=== PATIENT | female | born 1950 | race Caucasian/White ===

== ENCOUNTER 2017-03-05 05:27 | Inpatient (IN) | payer OTHER, MEDICARE ==
[2017-02-19 09:07] LABS: URINE BILIRUBIN NEGATIVE (Negative); URINE BLOOD TRACE (Negative); URINE COLOR YELLOW; URINE GLUCOSE-RANDOM* NEGATIVE (Negative); URINE KETONES TRACE (Negative); URINE LEUKOCYTES-REFLEX NEGATIVE (Negative); URINE PROTEIN (DIPSTICK) TRACE (Negative); URINE SPECIFIC GRAVITY >= 1.030 (1.003-1.035); URINE UROBILINOGEN 0.2 E.U./dl (0.2-1.0)
[2017-02-19 09:08] LABS: HEMATOCRIT 41.8 % (37.0-47.0); HEMOGLOBIN 14.2 gm/dL (12.0-15.0); MCH 31.2 pg (26.0-34.0); MCHC 33.9 g/dL (28.0-37.0); MCV 92.2 fL (80.0-100.0); RBC 4.53 mil/uL (4.20-5.00); RDW 12.7 % (10.5-14.5); WBC 3.9 thou/uL (4.0-11.0)
[2017-02-19 09:36] LABS: PROTIME 10.6 Seconds (9.3-11.4)
[2017-02-19 09:51] LABS: ALBUMIN 3.8 g/dL (3.4-5.0); CALCIUM 9.4 mg/dL (8.5-10.1); CREATININE 0.9 mg/dL (0.6-1.0); POTASSIUM 4.5 mmol/L (3.5-5.1)
[2017-03-05] VITALS (7 sets, daily range): BP systolic 98–165; BP diastolic 57–78
[~2017-03-05] VITALS: Ht 162.6 cm; Wt 84.4 kg
--- NOTE | ~2017-03-05 | HC ---
[facility] [place] [address] CONSULTATION Name: CHAVO SERRANO Room #: 411-P [facility] IN M.R.#: [id number] Admission: 03/05/17 Attend Phys: Aneesh Richardson MD Discharge: 03/08/17 Date of : 52 Report #: [id number] THIS REPORT FOR: //name// CC: Fan Richardson DATE OF SERVICE: 03/07/2017 HISTORY OF PRESENT ILLNESS: This is a 66-year-old female patient who was evaluated by me for tremor and what appeared to be somewhat of unusual symptoms in the eye. She gives a history that she had episodes where she thought some fog was racing into her eyes. It was present in both eyes. She had some trouble with double vision that is better. Her eye symptoms are not fully resolved, but they are better. It is not associated with any significant headache. She has no prior history of migraine. She has no history of anxiety. Symptoms were severe, although they are better now. REVIEW OF SYSTEMS: Indicate that she has been admitted for knee replacement as I understand. She had the surgery done on Sunday. Otherwise, she is a pretty healthy. I carried out the 14-point review of system and she indicates she takes some trazodone. She was not taking any gabapentin. She does take aspirin and statin. She tells me rest of her 14-point review of system was mostly unremarkable. PAST MEDICAL HISTORY: Negative for any migraine. FAMILY HISTORY: Negative for early age stroke. SOCIAL HISTORY: She tells me she is not an anxious person and she drinks very little and does not smoke. PHYSICAL EXAMINATION: NEUROLOGIC: Indicates that she is alert. She is responsive. Her speech, concentration, fund of knowledge and memory is at her baseline. Cranial nerve examination 2-12 mostly clinically looks unremarkable, but when I asked her to read, she says her vision is still not back to normal. It is not double, but she cannot explain what it is. for her surgery, she has symmetrical strength, sensation, reflexes and tone in all 4 extremities. There is no meningeal sign. There is no carotid bruit. She is a very well-developed individual who does not have any dysmorphic features of eyes, ears and face. Her hearing and vision looks adequate. CARDIAC AND RESPIRATORY: Unremarkable. EXTREMITIES: Pulses are palpable and she has no edema, cyanosis or jaundice. VITAL SIGNS: Her blood pressure is somewhat running low at 88/49, temperature is 97.9, respiration is 16. [address] [address] CONSULTATION Name: CHAVO SERRANO Room #: [facility] IN [facility].#: [id number] Admission: 03/05/17 Attend Phys: Aneesh Richardson MD Discharge: 03/08/17 Date of : 52 Report #: [id number] LABORATORY DATA: She is slightly anemic with hemoglobin of 10.3. She did have a CT scan of the head, which was reviewed and was unremarkable. IMPRESSION: These are pretty unusual symptoms. It is possible they are all ophthalmic migraine, but she does have some tremor with it. I suggested some other workup. The first thing we need is a good Ophthalmology examination. Nurses are not sure whether any pre owned sales manager comes here anymore, but they are trying to get one. I discussed that with Dr. Shaw and he is trying to arrange some Ophthalmology consult and she needs a good ophthalmic exam. I will suggest a sed rate. I will get a carotid Doppler and EEG done. We will see if she is settled down. Otherwise, we can consider MRI, but we may have to talk to the Orthopedic and some of them will not allow an MRI for a few weeks after the surgery. Thank you very much for this referral and if you have any question, please feel free to contact me and I discussed all of it with the patient in detail. <ELECTRONICALLY SIGNED> By: Cruz Ibanez MD 03/12/17 1107 [id number] Cruz Ibanez MD /nt
--- NOTE | ~2017-03-05 | EKG ---
[address] [address] ELECTROCARDIOGRAM REPORT Name: CHAVO SERRANO Room #: PRE IN M.R.#: [id number] Admission: Attend Phys: Aneesh Richardson MD Discharge: Date of : 52 Report #: [id number] THIS REPORT FOR: //name// [facility] Test Date: 2017-02-19 Test Time: 08:08:51 Pat Name: CHAVO SERRANO Department: Room: Gender: F Transit Mix Operator: Anna CALDERON : 1950 Requested By: Aneesh Richardson Order Number: [id number] MD: Measurements Intervals [place] Rate: 63 P: 30 LA: 139 QRS: 29 QRSD: 77 T: 53 QT: 396 QTc: 406 Interpretive Statements Sinus rhythm No previous ECG available for comparison [email or web address] By: 0808 0808 Richa Chaudhry MD /EPI
--- NOTE | ~2017-03-05 | EEG ---
[facility] [email or web address] [address] ELECTROENCEPHALOGRAM Name: CHAVO SERRANO Room #: 411-P [facility] IN M.R.#: [id number] Admission: 03/05/17 Attend Phys: Aneesh Richardson MD Discharge: 03/08/17 Date of : 52 Report #: [id number] THIS REPORT FOR: //name// CC: Fan Richardson DATE OF SERVICE: 03/08/2017 This patient had episodes which were somewhat of an unstructured episode. I called the patient and talked to the this morning and she has not had any further episode. EEG was done to further evaluate that. Background activity in this patient's EEG is about 11 Hz and 40 microvolt. It is a pretty well formed background activity. The patient goes to sleep that is associated with bilaterally symmetrical sleep spindle and vertex sharp waves. Bilateral slowing is present. On occasion, it looks like there may be some sharper activity, but it is difficult to be certain. IMPRESSION: This is a borderline EEG, which is intermixed with slowing. That may be the effect of medication. This patient never had any symptoms before, but I talked to them. I think she should have repeat EEG early next week. If she has any further symptoms, she should go to Emergency Room. She should take seizure precautions and should not drive for the time being. We will give her more instruction after we get the repeat EEG next week. Thank you very much for this referral. <ELECTRONICALLY SIGNED> By: Cruz Ibanez MD 03/12/17 1108 [id number] Cruz Ibanez MD /nt
--- NOTE | ~2017-03-05 | O ---
[facility] [place] [address] OPERATIVE REPORT Name: CHAVO SERRANO Room #: 150-17 ADM IN M.R.#: [id number] Admission: 03/05/17 Attend Phys: Aneesh Richardson MD Discharge: Date of : 52 Report #: [id number] THIS REPORT FOR: //name// CC: Fan Richardson DATE OF SERVICE: 03/05/2017 PREOPERATIVE DIAGNOSIS: Right knee osteoarthritis. POSTOPERATIVE DIAGNOSIS: Right knee osteoarthritis. PROCEDURE: Right total knee arthroplasty. SURGEON: Aneesh Richardson MD. SEWING MACHINE ASSEMBLER: Tasia Gan PA-C. INDICATION FOR SEWING MACHINE ASSEMBLER: Throughout the case extensive retraction and manipulation of the knee was required. This was afforded to me by my daycare assistant. ANESTHESIA: General with an adductor canal block. IMPLANTS: [employer] size 4 Legion cobalt chrome posterior stabilized femur, a size 2 tibia, size 9 polyethylene, and size 32 patella. TOURNIQUET TIME: 55 minutes. ESTIMATED BLOOD LOSS: 50 mL. COMPLICATIONS: None. SPECIMENS: None. CONDITION UPON LEAVING OPERATING ROOM: Stable. INDICATION FOR PROCEDURE: The patient is a 66-year-old female with right knee osteoarthritis. She had failed conservative treatment for this and after discussion with her she elected for right total knee arthroplasty. DESCRIPTION OF PROCEDURE: Risks, benefits, alternatives, complications were discussed in detail with the patient including but not limited to risk of anesthesia, risk of damage to nerves, arteries, blood vessels; risk for infection, bleeding, risk for continued knee pain and need for reoperation. Informed consent was obtained from the patient. The right knee was appropriately marked in the preoperative holding area. Adductor canal block was [facility] [address] [place] [address] OPERATIVE REPORT Name: CHAVO SERRANO Room #: 150-17 ADM IN M.R.#: [id number] Admission: 03/05/17 Attend Phys: Aneesh Richardson MD Discharge: Date of : 52 Report #: [id number] placed by Anesthesia. IV clindamycin was given for preoperative antibiotics. She was brought to the operating room and placed in the supine position on the operating room table. LMA anesthesia was induced without complication. Tourniquet was placed on the right thigh. Right lower extremity was prepped and draped in normal sterile fashion. Timeout was performed properly identifying the patient and procedure as well as the instrumentation. All in the operating room were in agreement. Right lower extremity was exsanguinated, tourniquet was inflated. Tourniquet time was 55 minutes. Standard midline approach to knee was made with 10 blade through the skin. Dissection was taken down sharply to the fascia and deep flaps were developed medially and laterally. Fresh 10 blade was used to make a medial parapatellar arthrotomy and the knee was inspected. There was tricompartmental osteoarthritis noted. The patella was everted. The knee was flexed. Anterior horns of the meniscus were removed sharply. ACL and PCL were removed sharply. Drill was used to gain access to the canal of the femur and distal femoral cutting block was pinned in place. Distal femoral cut was made. Femur was sized, found to be a size 4. The size 4, 4-in-1 cutting block was placed. Anterior, posterior and chamfer cuts were made. Knee was then hyperflexed. Attention was turned to the tibia. The drill was used to gain access to the canal of the tibia and intramedullary alignment was used. Resection was based off the lateral plateau. Tibial resector was pinned in place and tibial resection was made. After this, posterior osteophytes were removed from the femur, and the flexion and extension gaps were checked and found to be equal in flexion and extension both medially and laterally. The tibia was sized, found to be a size 2. The size 2 tibial trial was placed, size 4 femoral trial was placed and the box cut was made. Post was placed for the femoral trial and a size 9 polyethylene trial was placed. Knee was taken through range of motion, found to be stable, found to have equal balance in flexion and extension both medially and laterally. 9 mm was then taken off the posterior surface of the patella and a size 32 patella trial button was placed. Knee was taken through range of motion, found to be stable, found to have good balance in flexion and extension both medially and laterally. Trial components were then removed. Bony ends were thoroughly irrigated with normal saline. Final size 2 tibia, a size 4 femur and a size 32 patella were cemented in place using standard cementation techniques. While the cement was curing a periarticular injection consisting of ropivacaine, morphine, epinephrine and Toradol was placed around the knee joint. After the cement cured, the tourniquet was deflated. Hemostasis was obtained with Bovie cautery. Final size 9 polyethylene was placed. A gram of vancomycin was placed deep in the knee joint. The fascia was closed with 0 Vicryl, skin was closed with 2-0 Vicryl, 3-0 Monocryl and a SNOW dressing was applied. The patient tolerated this procedure well and went to recovery room under care of Anesthesia postoperatively. By: 1710 1735 Aneesh Richardson MD /nt
[~2017-03-05 05:27] MED LIST: ASPIR 8181 MG PO; ATORVASTATIN CA40 MG PO; CO Q-10200 MG PO; IBUPROFEN 200200 M1 PO; MULTI VITAMIN1 EACH PO; PROAIR HFA8.5 GM INH; TRAZODONE HCL100 MG PO; TURMERIC500 M2 PO; VITAMIN D-32000 UNI1 PO; ZYRTEC10 M4 PO
[2017-03-06] VITALS (7 sets, daily range): BP systolic 84–113; BP diastolic 48–62
[2017-03-06 06:35] LABS: HEMATOCRIT 37.5 % (37.0-47.0); HEMOGLOBIN 12.4 gm/dL (12.0-15.0); MCH 30.7 pg (26.0-34.0); MCHC 33.2 g/dL (28.0-37.0); MCV 92.6 fL (80.0-100.0); RBC 4.05 mil/uL (4.20-5.00); RDW 12.5 % (10.5-14.5); WBC 8.9 thou/uL (4.0-11.0)
[2017-03-06 07:27] LABS: CREATININE 0.9 mg/dL (0.6-1.0); POTASSIUM 4.9 mmol/L (3.5-5.1)
[2017-03-06 12:55] LABS: HEMATOCRIT 34.8 % (37.0-47.0); HEMOGLOBIN 11.7 gm/dL (12.0-15.0)
[2017-03-07 04:00] VITALS: BP 93/52
[2017-03-07 06:29] LABS: ABSOLUTE NEUTROPHILS 6.1 thou/uL (1.4-8.2); BASOPHILS 0.2 % (0.0-2.0); EOSINOPHILS 0.2 % (0.0-3.0); HEMATOCRIT 31.2 % (37.0-47.0); HEMOGLOBIN 10.3 gm/dL (12.0-15.0); LYMPHOCYTES 11.9 % (24.0-44.0); MCH 30.3 pg (26.0-34.0); MCV 91.9 fL (80.0-100.0); MONOCYTES 10.1 % (1.0-8.0); PLATELET COUNT 174 thou/uL (150-400); POLYS 77.6 % (36.0-66.0); RBC 3.39 mil/uL (4.20-5.00); RDW 12.9 % (10.5-14.5); WBC 7.9 thou/uL (4.0-11.0)
[2017-03-07 06:35] LABS: CALCIUM 8.3 mg/dL (8.5-10.1); CREATININE 0.9 mg/dL (0.6-1.0); MAGNESIUM 1.9 mg/dL (1.8-2.4); POTASSIUM 4.5 mmol/L (3.5-5.1)
[2017-03-07 06:39] LABS: MANUAL DIFF NO
[2017-03-07 08:53] VITALS: BP 88/49
[2017-03-07 16:19] VITALS: BP 110/57
[2017-03-07 19:39] VITALS: BP 108/57
[2017-03-08 04:00] VITALS: BP 96/53
[2017-03-08 05:53] LABS: CALCIUM 8.3 mg/dL (8.5-10.1); CREATININE 0.8 mg/dL (0.6-1.0); HEMATOCRIT 29.2 % (37.0-47.0); HEMOGLOBIN 9.7 gm/dL (12.0-15.0); MCH 30.7 pg (26.0-34.0); MCHC 33.3 g/dL (28.0-37.0); MCV 92.2 fL (80.0-100.0); PLATELET COUNT 172 thou/uL (150-400); POTASSIUM 4.7 mmol/L (3.5-5.1); RBC 3.17 mil/uL (4.20-5.00); WBC 6.3 thou/uL (4.0-11.0)
[2017-03-08 05:54] LABS: MANUAL DIFF YES
[2017-03-08 07:40] LABS: TOTAL CELL COUNT 100
[2017-03-08 07:41] LABS: ANISOCYTOSIS SLIGHT
[2017-03-08 08:00] VITALS: BP 115/58
[2017-03-08 09:26] VITALS: BP 115/58
[2017-03-08] MEDS ORDERED: NORCO 5-325 TA1 EACH PO (10:32)
== END 2017-03-08 13:20 | disposition home or self-care (01) | DRG 470 ==
LOC: PRE 05:27 → TBA 05:36 → 4N 05:36 → PRE 11:18 → 4N 17:59 → ENTRNSPT 03-07 13:44 → EDTRNSPTSTS 03-07 13:45 → CMPTRNSPT 03-08 13:11 → 4N 03-08 13:20 → EDTRNSPTSTS 03-08 13:25 → ENTRNSPT 03-08 13:25
PROVIDERS: Internal Medicine; Nurse Practitioner; Orthopaedic Surgery
PROC: 0SRC0J9 Replacement of Right Knee Joint with Synthetic Substitute, Cemented, Open Approach (ICD-10-PCS; principal; 2017-03-05)
PROC: 3E0T3BZ Introduction of Anesthetic Agent into Peripheral Nerves and Plexi, Percutaneous Approach (ICD-10-PCS; 2017-03-05)
DX: M17.11 Unilateral primary osteoarthritis, right knee (principal); J45.909 Unspecified asthma, uncomplicated; E78.5 Hyperlipidemia, unspecified; I95.9 Hypotension, unspecified; Z86.718 Personal history of other venous thrombosis and embolism; Z88.0 Allergy status to penicillin
CPT/HCPCS: 10790; 50010; 50101; 50415; 50612; 50954; 51130; 51225; 51771; 53000; 53078; 53364; 54118; 56527; 56528; 57095; 62110; 62900; 64042; 70005